=== PATIENT | female | born 1970 | race Caucasian/White ===

== ENCOUNTER 2018-04-24 10:41 | Emergency (ER) | payer SELFPAY ==
[~2018-04-24] VITALS: Ht 149.9 cm; Wt 90.7 kg
[2018-04-24 10:52] VITALS: BP 168/80
[2018-04-24] MEDS ORDERED: KETOROLAC 60 MG/2 ML VIAL IM ONE (10:55)
[2018-04-24] MEDS ORDERED: MORPHINE SULFATE 4 MG/ML SYR IM ONE (12:05)
[2018-04-24 12:45] VITALS: BP 157/73
== END 2018-04-24 12:45 | disposition home or self-care (01) ==
LOC: MED 10:41
DX: M25.512 Pain in left shoulder (principal); M25.552 Pain in left hip; M54.2 Cervicalgia; Z90.710 Acquired absence of both cervix and uterus; V89.2XXA Person injured in unspecified motor-vehicle accident, traffic, initial encounter; Y93.89 Activity, other specified; Y92.89 Other specified places as the place of occurrence of the external cause; Y99.8 Other external cause status
CPT/HCPCS: 73030; 73502; 96372; 99283; J1885; J2270

== ENCOUNTER 2018-10-30 10:58 | Emergency (ER) | payer SELFPAY ==
[~2018-10-30] VITALS: Ht 149.9 cm; Wt 99.8 kg
[2018-10-30 11:03] VITALS: BP 136/95
--- NOTE | 2018-10-30 11:08 | NUR ---
PT WHEELCHAIRED TO BED 9
[2018-10-30] MEDS ORDERED: KETOROLAC 60 MG/2 ML VIAL IM ONE (11:25)
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
[2018-10-30] MEDS ORDERED: MORPHINE SULFATE 4 MG/ML SYR IM ONE (12:40)
--- NOTE | 2018-10-30 13:50 | NUR ---
Patient discharged with v/s stable. Written and verbal after care instructions given and explained. Patient alert, oriented and verbalized understanding of instructions. Wheel Chair Assisted with by caregiver. All questions addressed prior to discharge. ID band removed. Patient advised to follow up with PMD. Rx of NORCO given. Patient educated on indication of medication including possible reaction and side effects. Opportunity to ask questions provided and answered.
[2018-10-30 13:51] VITALS: BP 132/80
== END 2018-10-30 13:50 | disposition home or self-care (01) ==
LOC: MED 10:58
DX: G89.29 Other chronic pain (principal); M54.5 Low back pain
CPT/HCPCS: 81002; 81025; 96372; 99283; J1885; J2270

== ENCOUNTER 2019-02-25 11:36 | Emergency (ER) | payer SELFPAY ==
[~2019-02-25] VITALS: Ht 149.9 cm; Wt 102.1 kg
--- NOTE | 2019-02-25 11:55 | NUR ---
Patient ambulated to bed 6. RN evaluating patient at bedside.
--- NOTE | 2019-02-25 11:55 | NUR ---
PT AMBULATORY BUT WHEELCHAIR ASSISTED TO BED WITH FAMILY
[2019-02-25 12:02] VITALS: BP 143/72
[2019-02-25] MEDS ORDERED: KETOROLAC 30 MG/ML VIAL IM ONE (12:50)
[2019-02-25] MEDS ORDERED: HYDROcodone/APAP 5/325 MG 1 TAB TAB PO ONE (12:50)
[2019-02-25] MEDS ORDERED: HALOPERIDOL IM 5 MG/ML VIAL IM ONE (15:20)
[2019-02-25] MEDS ORDERED: DIAZEPAM 5 MG TAB PO ONE (15:50)
[2019-02-25 16:24] VITALS: BP 127/72
--- NOTE | 2019-02-25 16:25 | NUR ---
pt discharged home at this time in the company of family member.pt discharged with prescriptions of tylenol extra strength;ibuprofen;and flexeril.pt verbalized understanding of discharge instructions.
== END 2019-02-25 16:25 | disposition home or self-care (01) ==
LOC: MED 11:36
DX: M54.5 Low back pain (principal)
CPT/HCPCS: 36415; 80173; 96372; 99283; J1630; J1885